=== PATIENT | male | born 1975 | race Caucasian/White ===

== ENCOUNTER 2019-11-04 10:07 | Inpatient (IN) | payer OTHER ==
[2019-11-04 11:56] VITALS: BMI 25.1
--- NOTE | 2019-11-04 12:15 | HP ---
<Matthew Drake - Last Filed: 11/04/19 13:25> COWS - Scale Resting Pulse: 1= [place] 81-100 Sweatin=Flushed/Facial Moisture Pupil Size: 1= Pupils >than Normal Bone or Joint Aches: 0= None Runny Nose/ Eye Tearin= None GI Upset > 30mins: 2= Nausea/Diarrhea Tremor Observation: 0= None Yawning Observation: 0= None Anxiety or Irritability: 1=Feels Anxious/Irritable Goose Flesh Skin: 0=Smooth Skin CIWA Score Nausea/Vomitin-Mild Nausea/No Vomiting Muscle Tremors: 1-None Visible, but [place] Anxiety: 2 Agitation: 1-Slight > Activity Paroxysmal Sweats: 1-Minimal Palms Moist Orientation: 0-Oriented Tacttile Disturbances: 2-Mild Itch/Numbness/Burn Auditory Disturbances: 1-Very Mild Visual Disturbances: 0-None Headache: 0-None Present CIWA-Ar Total Score: 9 - Admission Criteria OASAS Guidelines: Admission for Medically Managed Detox: Requires at least one of the followin. CIWA greater than 12 2. Seizures within the past 24 hours 3. Delirium tremens within the past 24 hours 4. Hallucinations within the past 24 hours 5. Acute intervention needed for co occurring medical disorder 6. Acute intervention needed for co occurring psychiatric disorder 7. Severe withdrawal that cannot be handled at a lower level of care (continued vomiting, continued diarrhea, abnormal vital signs) requiring intravenous medication and/or fluids 8. Patient presents the following: Seizures, delirium tremens or hallucinations in the past 12 hours Admission Criteria Met: Admission criteria met Admitting History and Physical - Admission Chief Complaint: detox History of Present Illness: Seeks detox for heroin, cocaine, alcohol, marijuana, Xanax. Heroin: been using 19 years, 20 bags daily, injects. Has withdrawn in the past. Feels he is beginning to withdraw now. Last use yesterday. Cocaine: been using 19 years, injects, 3 X $20's daily. Last use yesterday Alcohol: been using 16 years, states he drinks socially usually 8 beers and a pint of vodka daily, has withdrawn, never had a seizure, Last drink yesterday Marijuana: daily since 13 years old, $45 worth daily Xanax: 2 pills daily (or whenever he can get it) for about 10 years Tobacco: 1ppd since age 15 Admits to: anxious, tingling, tremors, auditory hallucinations, sweaty, nausea Denies: visual hallucination, runny nose Is not in a methadone program Buys methadone on the street PMH: asthma, hep B PSH: none Psych: Depression, Anxiety Meds: none All: none Soc: Was living in an apt with his significant other. He was kicked out yesterday. States now he is homeless A/P: Will admit for detox and reassess need for rehab once detox is complete. Counselled. Systolic murmur noted on physical exam. Pt advised he will need to see his doctor to follow up. Cautioned against IVDA History Source: Patient Limitations to Obtaining History: No Limitations - Past Medical History Pulmonary: Yes: Asthma Hepatobiliary: Yes: Hepatitis B Infectious Disease: No: HIV Psych: Yes: Anxiety, Depression - Past Surgical History Past Surgical History: Yes: None - Smoking History Smoking history: Current every day smoker Have you smoked in the past 12 months: Yes Aproximately how many cigarettes per day: 24 - Alcohol/Substance Use History of Substance Use: reports: Cocaine, Heroin, Marijuana, Prescription ( Xanax) - Social History Usual Living Arrangement: Yes: With Spouse (was just kicked out yesterday) 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, maintenance History of Recent Travel: No Admission [facility] Allergies/Adverse Reactions: Allergies Allergy/AdvReac Type Severity Reaction Status Date / Time No Known Allergies Allergy Verified 11/04/19 11:39 - Ebola screening Have you traveled outside of the country in the last 21 days: No Have you had contact with anyone from an Ebola affected area: No Do you have a fever: No Patient History - Patient Medical History Hx Asthma: No Hx Chronic Obstructive Pulmonary Disease (COPD): No Hx Cardiac Disorders: No Hx Hypertension: No Hx Seizures: No Hx Diabetes: No Hx Gastrointestinal Disorders: No Hx Genitourinary Disorders: No Hx Sexually Transmitted Disorders: No Hx Renal Disease (ESRD): No Hx Depression: No Hx Suicide Attempt: No Hx Schizophrenia: Yes - Patient Surgical History Past Surgical History: Yes Hx Neurologic Surgery: No Hx Cataract Extraction: No Hx Cardiac Surgery: No Hx Lung Surgery: No Hx Breast Surgery: No Hx Breast Biopsy: No Hx Abdominal Surgery: No Hx Appendectomy: No Hx Cholecystectomy: No Hx Genitourinary Surgery: No Hx Section: No Hx Orthopedic Surgery: No Other Surgical History: Tonsillectomy at age 9. Anesthesia Reaction: No - PPD History Previous Implant?: No - Reproductive History Patient : No - Smoking Cessation Smoking history: Current every day smoker Have you smoked in the past 12 months: Yes Aproximately how many cigarettes per day: 24 Cigars Per Day: 0 Hx Chewing Tobacco Use: No Initiated information on smoking cessation: Yes 'Breaking Loose' booklet given: 11/04/19 - Substances abused Alcohol Substance route: Oral Frequency: 3-6 times per week Amount used: 1.5 pints of voldka Age of first use: 20 Date of last use: 10/30/19 Cocaine Substance route: Injection Frequency: 3-6 times per week Amount used: 3 bags Age of first use: 20 Date of last use: 11/03/19 Heroin Substance route: Injection Frequency: Daily Amount used: 21 bags Age of first use: 20 Date of last use: 11/02/19 Marijuana/Hashish Substance route: Smoking Frequency: Daily Amount used: 4 blunts Age of first use: 15 Date of last use: 11/03/19 Admission Physical Exam [facility] - Vital Signs Vital Signs: Vital Signs - 24 hr 11/04/19 11:39 Temperature 98.1 F Pulse Rate 73 Respiratory 18 Rate Blood Pressure 118/62 - Physical General Appearance: Yes: Intoxicated, Other (somnolent) HEENTM: Yes: EOMI, Normocephalic, Pharynx Normal. No: KENZIE (3 mm pupils sluggish, equal b/l) Respiratory: Yes: Within Normal Limits Neck: Yes: Within Normal Limits (no bruits) Cardiology: Yes: Regular Rhythm, Regular Rate, Systolic Murmur (soft 2/6 systolic murmur at the apex) Abdominal: Yes: Within Normal Limits Extremities: No: Normal Inspection (injection sites b/l dorsum of hand, R AC injection site all with thrombosis/fibrosis of veins. Do not appear to be infected at this time.) Integumentary: Yes: Track Chavez Cleared for Admission [facility] - Detox or Rehab [facility] Level of Care: Medically Managed Screened but not Admitted - Documentation of Visit Screened but not Admitted: No Urine Drug Screen - Test Device Lot number: [id number] Expiration date: 03/06/21 - Control Is test valid?: Yes - Results Drug screen NEGATIVE: No Urine drug screen results: THC-Marijuana, CHRISTY-Cocaine, MOP-Opiates, MTD- Methadone, BZO-Benzodiazepines Inpatient Rehab Admission - Rehab Decision to Admit Inpatient rehab admission?: No <Kriss Pires - Last Filed: 11/04/19 14:50> CIWA Score Paroxysmal Sweats: 3 Auditory Disturbances: 1-Very Mild - Admission Criteria OASAS Guidelines: Admission for Medically Managed Detox: Requires at least one of the followin. CIWA greater than 12 2. Seizures within the past 24 hours 3. Delirium tremens within the past 24 hours 4. Hallucinations within the past 24 hours 5. Acute intervention needed for co occurring medical disorder 6. Acute intervention needed for co occurring psychiatric disorder 7. Severe withdrawal that cannot be handled at a lower level of care (continued vomiting, continued diarrhea, abnormal vital signs) requiring intravenous medication and/or fluids 8. Admission Physical Exam [facility] - Vital Signs Vital Signs: Vital Signs - 24 hr 11/04/19 11:39 Temperature 98.1 F Pulse Rate 73 Respiratory 18 Rate Blood Pressure 118/62
[2019-11-04] MEDS ORDERED: hydrOXYzine PAMOATE 25 MG CAPSULE (FP) PO PRN (13:32)
[2019-11-04] MEDS ORDERED: MENTHOL/PHENOL 1 EACH UD MM PRN (13:32)
[2019-11-04] MEDS ORDERED: BISMUTH SUBSALICYLATE 262 MG/15 ML BTL PO PRN (13:32)
[2019-11-04] MEDS ORDERED: MAGNESIUM HYDROX 2400MG/30ML ORAL SUSPENSION 30 ML CUP PO PRN (13:32)
[2019-11-04] MEDS ORDERED: MAGNESIUM CITRATE 300 ML BOTTLE PO PRN (13:32)
[2019-11-04] MEDS ORDERED: cloNIDine HCL 0.1 MG TABLET PO PRN (13:32)
[2019-11-04] MEDS ORDERED: IBUPROFEN 400 MG TABLET (FP) PO PRN (13:32)
[2019-11-04] MEDS ORDERED: MAG HYDROX/AL HYDROX/SIMETH 30 ML UNIT-DOSE CUP PO PRN (13:32)
[2019-11-04] MEDS ORDERED: METHOCARBAMOL 500 MG TABLET PO PRN (13:32)
[2019-11-04] MEDS ORDERED: ACETAMINOPHEN 325 MG TABLET (FP) PO PRN ×2 (13:32)
[2019-11-04] MEDS ORDERED: chlordiazePOXIDE HCL 25 MG CAPSULE PO PRN (13:32)
[2019-11-04] MEDS ORDERED: METHADONE HCL 10 MG TABLET (FOR DETOX USE ONLY) PO ONE (14:10)
[2019-11-04] MEDS: chlordiazePOXIDE HCL 25 MG CAPSULE PO SCH ×2 (17:45→22:19)
[2019-11-04 17:48] LABS: HEMATOCRIT 35.9 % (35.4-49); MCH 29.8 pg (25.7-33.7); MCHC 33.4 g/dl (32.0-35.9); MEAN CELL VOLUME 89.3 fl (80-96); MEAN PLT VOLUME 7.2 fl (7.5-11.1); PLATELET COUNT 247 K/MM3 (134-434); RBC 4.02 M/mm3 (4.00-5.60); RDW 13.6 % (11.9-15.9); WHITE BLOOD COUNT 7.7 K/mm3 (4.0-10.0)
[2019-11-04 17:59] LABS: ALBUMIN 2.8 g/dl (3.4-5.0); BILIRUBIN,TOTAL 0.4 mg/dL (0.2-1); BLOOD UREA NITROGEN 12.3 mg/dL (7-18); CALCIUM 8.2 mg/dL (8.5-10.1); CREATININE 0.9 mg/dL (0.55-1.3); POTASSIUM 3.6 mmol/L (3.5-5.1); TOT PROT 6.8 g/dl (6.4-8.2)
[2019-11-04] MEDS: THIAMINE HCL 100 MG TABLET (FP) PO SCH (22:18)
[2019-11-04] MEDS: MELATONIN 5 MG TABLETS PO PRN (22:19)
[2019-11-05] MEDS: chlordiazePOXIDE HCL 25 MG CAPSULE PO SCH ×4 (06:36→22:08)
[2019-11-05] MEDS ORDERED: METHADONE HCL 5 MG TABLET (FOR DETOX USE ONLY) ONE (08:59)
[2019-11-05] MEDS ORDERED: METHADONE HCL 10 MG TABLET (FOR DETOX USE ONLY) ONE (09:00)
[2019-11-05] MEDS ORDERED: METHADONE (DETOX) 20 MG, METHADONE (DETOX) 5 MG PO ONE (10:00)
[2019-11-05] MEDS: PRENATAL VITAMINS W/ FOLIC ACID TABLET (FP) PO SCH (10:05)
[2019-11-05] MEDS: NICOTINE 21 MG/24 HOURS TOPICAL PATCH TD SCH (10:08)
[2019-11-05] MEDS ORDERED: PNEUMOC 13-VAL CONJ-DIP CRM/PF 0.5 ML DISP.SYRIN IM ONE (12:00)
[2019-11-05] MEDS ORDERED: FLU VACCINE QUAD 60 MCG/0.5 ML (MDV 19-20) IM ONE (12:00)
[2019-11-05] MEDS ORDERED: PNEUMOCOCCAL 23 VACCINE 0.5 ML VIAL IM ONE (12:00)
--- NOTE | 2019-11-05 12:12 | PN ---
[facility] CIWA - CIWA Score Nausea/Vomitin-No Nausea/No Vomiting Muscle Tremors: 3 Anxiety: 3 Agitation: 3 Paroxysmal Sweats: 3 Orientation: 0-Oriented Tacttile Disturbances: 0-None Auditory Disturbances: 0-None Visual Disturbances: 0-None Headache: 0-None Present CIWA-Ar Total Score: 12 [facility] COWS - Scale Resting Pulse: 0= [place] 80 or Below Sweatin= Chills/Flushing Restless Observation: 1= Difficult to Sit Still Pupil Size: 0= Normal to Room Light Bone or Joint Aches: 2= Severe Diffuse Aches Runny Nose/ Eye Tearin= Runny Nose/Eyes GI Upset > 30mins: 1= Stomach Cramp Tremor Observation of Outstretched Hands: 2= Slight Tremor Visible Yawning Observation: 2= >3x During Session Anxiety or Irritability: 2=Irritable/Anxious Goose Flesh Skin: 0=Smooth Skin COWS Score: 13 S Progress Note (SOAP) Subjective: sweats shakes irritable interrupted sleep agitation poor appetite Objective: 11/05/19 12:12 Vital Signs Temperature 97.9 F 11/05/19 09:39 Pulse Rate 75 11/05/19 09:39 Respiratory Rate 18 11/05/19 09:39 Blood Pressure 113/73 11/05/19 09:39 O2 Sat by Pulse Oximetry (%) Laboratory Tests 11/04/19 11/04/19 11/04/19 13:30 13:30 13:30 WBC 7.7 RBC 4.02 Hgb 12.0 Hct 35.9 MCV 89.3 MCH 29.8 MCHC 33.4 RDW 13.6 Plt Count 247 MPV 7.2 L Sodium 140 Potassium 3.6 Chloride 105 Carbon Dioxide 29 Anion Gap 6 L BUN 12.3 Creatinine 0.9 Est GFR (CKD-EPI)AfAm 120.81 Est GFR (CKD-EPI)NonAf 104.24 Random Glucose 86 Calcium 8.2 L Total Bilirubin 0.4 AST 22 ALT 35 Alkaline Phosphatase 117 Total Protein 6.8 Albumin 2.8 L RPR Titer Nonreactive HIV 1&2 Antibody Screen HIV P24 Antigen 11/05/19 07:30 WBC RBC Hgb Hct MCV MCH MCHC RDW Plt Count MPV Sodium Potassium Chloride Carbon Dioxide Anion Gap BUN Creatinine Est GFR (CKD-EPI)AfAm Est GFR (CKD-EPI)NonAf Random Glucose Calcium Total Bilirubin AST ALT Alkaline Phosphatase Total Protein Albumin RPR Titer HIV 1&2 Antibody Screen Negative HIV P24 Antigen Negative aaox3 ambulating no acute distress Assessment: 11/05/19 12:12 withdrawals Plan: continue detox increase fluids ensure plus bid
[2019-11-05] MEDS: THIAMINE HCL 100 MG TABLET (FP) PO SCH (22:09)
[2019-11-06] MEDS: chlordiazePOXIDE HCL 25 MG CAPSULE PO SCH ×4 (05:46→22:18)
[2019-11-06] MEDS: PRENATAL VITAMINS W/ FOLIC ACID TABLET (FP) PO SCH (09:56)
[2019-11-06] MEDS: NICOTINE 21 MG/24 HOURS TOPICAL PATCH TD SCH (09:56)
[2019-11-06] MEDS ORDERED: METHADONE HCL 10 MG TABLET (FOR DETOX USE ONLY) PO ONE (10:00)
--- NOTE | 2019-11-06 10:12 | PN ---
[facility] CIWA - CIWA Score Nausea/Vomitin-No Nausea/No Vomiting Muscle Tremors: 3 Anxiety: 3 Agitation: 3 Paroxysmal Sweats: 3 Orientation: 0-Oriented Tacttile Disturbances: 0-None Auditory Disturbances: 0-None Visual Disturbances: 0-None Headache: 0-None Present CIWA-Ar Total Score: 12 BHS COWS - Scale Resting Pulse: 1= [place] 81-100 Sweatin=Flushed/Facial Moisture Restless Observation: 1= Difficult to Sit Still Pupil Size: 0= Normal to Room Light Bone or Joint Aches: 1= Mild Discomfort Runny Nose/ Eye Tearin= Nasal Congestion GI Upset > 30mins: 0= None Tremor Observation of Outstretched Hands: 1= Tremor [place], Not Seen Yawning Observation: 1= 1-2x During Session Anxiety or Irritability: 2=Irritable/Anxious Goose Flesh Skin: 0=Smooth Skin COWS Score: 10 S Progress Note (SOAP) Subjective: irritable agitation restless interrupted sleep sweats Objective: 11/06/19 12:33 Vital Signs Temperature 97.8 F 11/06/19 09:38 Pulse Rate 88 11/06/19 09:38 Respiratory Rate 18 11/06/19 09:38 Blood Pressure 133/72 11/06/19 09:38 O2 Sat by Pulse Oximetry (%) Laboratory Tests 11/04/19 11/04/19 11/04/19 13:30 13:30 13:30 WBC 7.7 RBC 4.02 Hgb 12.0 Hct 35.9 MCV 89.3 MCH 29.8 MCHC 33.4 RDW 13.6 Plt Count 247 MPV 7.2 L Sodium 140 Potassium 3.6 Chloride 105 Carbon Dioxide 29 Anion Gap 6 L BUN 12.3 Creatinine 0.9 Est GFR (CKD-EPI)AfAm 120.81 Est GFR (CKD-EPI)NonAf 104.24 Random Glucose 86 Calcium 8.2 L Total Bilirubin 0.4 AST 22 ALT 35 Alkaline Phosphatase 117 Total Protein 6.8 Albumin 2.8 L RPR Titer Nonreactive HIV 1&2 Antibody Screen HIV P24 Antigen 11/05/19 07:30 WBC RBC Hgb Hct MCV MCH MCHC RDW Plt Count MPV Sodium Potassium Chloride Carbon Dioxide Anion Gap BUN Creatinine Est GFR (CKD-EPI)AfAm Est GFR (CKD-EPI)NonAf Random Glucose Calcium Total Bilirubin AST ALT Alkaline Phosphatase Total Protein Albumin RPR Titer HIV 1&2 Antibody Screen Negative HIV P24 Antigen Negative aaox3 ambulating no acute distress Assessment: 11/06/19 12:33 withdrawals Plan: continue detox increase fluids chest x-ray ordered
[2019-11-06] MEDS: MELATONIN 5 MG TABLETS PO PRN (22:18)
[2019-11-06] MEDS: THIAMINE HCL 100 MG TABLET (FP) PO SCH (22:18)
[2019-11-07] MEDS ORDERED: chlordiazePOXIDE HCL 10 MG CAPSULE PO PRN
[2019-11-07] MEDS ORDERED: chlordiazePOXIDE HCL 10 MG CAPSULE PO SCH (05:00)
[2019-11-07 06:35] VITALS: BP 142/84; PULSE 71; TEMP 97
[2019-11-07] MEDS ORDERED: METHADONE (DETOX) 10 MG, METHADONE (DETOX) 5 MG PO ONE (10:00)
--- NOTE | 2019-11-07 12:23 | PN ---
S Progress Note Note: pt approached check writer that he has things to do and wants to leave now. Pt was advised about relapse, risk of seizures, OD, DT and or loss, pt chose to sign out AMA.
--- NOTE | 2019-11-07 12:24 | DS ---
[facility] Detox Discharge Summary Admission Date: 11/04/19 - History Present History: Alcohol Dependence, Cocaine Dependence, Opioid Dependence - Physical Exam Results Vital Signs: Vital Signs Temperature 97 F L 11/07/19 06:34 Pulse Rate 71 11/07/19 06:34 Respiratory Rate 18 11/07/19 06:34 Blood Pressure 142/84 11/07/19 06:34 O2 Sat by Pulse Oximetry (%) - Treatment Hospital Course: Rehab Referral Accepted - Medication Discharge Medications: Ambulatory Orders NK [No Known Home Medication] 11/04/19 - Diagnosis (1) Alcohol dependence with withdrawal, uncomplicated Current Visit: Yes Status: Chronic (2) Cocaine dependence Current Visit: Yes Status: Chronic Qualifiers: Substance use status: uncomplicated Qualified Code(s): F14.20 - Cocaine dependence, uncomplicated (3) Nicotine dependence Current Visit: Yes Status: Chronic Qualifiers: Nicotine product type: cigarettes Substance use status: uncomplicated Qualified Code(s): F17.210 - Nicotine dependence, cigarettes, uncomplicated (4) Opioid dependence with withdrawal Current Visit: Yes Status: Chronic - AMA Did Patient Leave Against Medical Advice: Yes
[2019-11-08] MEDS ORDERED: chlordiazePOXIDE HCL 10 MG CAPSULE PO SCH (05:00)
[2019-11-08] MEDS ORDERED: METHADONE HCL 10 MG TABLET (FOR DETOX USE ONLY) PO ONE (10:00)
[2019-11-09] MEDS ORDERED: chlordiazePOXIDE HCL 10 MG CAPSULE PO ONE (05:00)
[2019-11-09] MEDS ORDERED: METHADONE HCL 5 MG TABLET (FOR DETOX USE ONLY) PO ONE (06:00)
== END 2019-11-07 10:05 | disposition left against medical advice (07) | DRG 770 ==
LOC: YASAS 10:07 → Y6N 13:42
PROVIDERS: ADMIT Allergy & Immunology; ATTEND Allergy & Immunology
PROC: HZ2ZZZZ Detoxification Services for Substance Abuse Treatment (ICD-10-PCS; principal; 2019-11-04)
DX: F10.230 Alcohol dependence with withdrawal, uncomplicated (principal); F11.23 Opioid dependence with withdrawal; F13.20 Sedative, hypnotic or anxiolytic dependence, uncomplicated; F14.20 Cocaine dependence, uncomplicated; F12.20 Cannabis dependence, uncomplicated; F17.210 Nicotine dependence, cigarettes, uncomplicated; F32.9 Major depressive disorder, single episode, unspecified; F42.9 Obsessive-compulsive disorder, unspecified; B19.10 Unspecified viral hepatitis B without hepatic coma; J45.909 Unspecified asthma, uncomplicated; Z59.0 Homelessness
CPT/HCPCS: 36415; 80053; 85027; 86593; 87389; 90732; G0008; G0009; Q2036

== ENCOUNTER 2020-06-06 13:43 | Inpatient (IN) | payer OTHER ==
[2020-06-06] MEDS ORDERED: NICOTINE POLACRILEX 2 MG GUM BUC PRN (15:25)
[2020-06-06] MEDS ORDERED: ACETAMINOPHEN 325 MG TABLET (FP) PO PRN (15:25)
[2020-06-06] MEDS ORDERED: hydrOXYzine PAMOATE 25 MG CAPSULE (FP) PO PRN (15:25)
[2020-06-06] MEDS ORDERED: MAG HYDROX/AL HYDROX/SIMETH 30 ML UNIT-DOSE CUP PO PRN (15:25)
[2020-06-06] MEDS ORDERED: guaiFENesin 200 MG/10 ML 10 ML UNIT-DOSE CUPS PO PRN (15:25)
[2020-06-06] MEDS ORDERED: MAGNESIUM CITRATE 300 ML BOTTLE PO PRN (15:25)
[2020-06-06] MEDS ORDERED: IBUPROFEN 400 MG TABLET (FP) PO PRN (15:25)
[2020-06-06] MEDS ORDERED: LOPERAMIDE HCL 2 MG CAPSULE PO PRN (15:25)
[2020-06-06] MEDS ORDERED: MENTHOL/PHENOL 1 EACH UD MM PRN (15:25)
[2020-06-06] MEDS ORDERED: MAGNESIUM HYDROX 2400MG/30ML ORAL SUSPENSION 30 ML CUP PO PRN (15:25)
[2020-06-06] MEDS ORDERED: P-EPHED 60MG/TRIPROLIDI 2.5MG TABLET PO PRN (15:25)
--- NOTE | 2020-06-06 15:25 | HP ---
[facility] Rehab Assess/Revision - Admission History Admitted to Rehab from: [facility] Date of Admission to Rehab: 06/06/2020 - Vital signs Vital Signs: Vital Signs Period Temp Pulse Resp BP Sys/Plunkett Pulse Ox Last 24 Hr 98.1 F 99 18 107/74 97 - Findings Detox History & Physical reviewed: Yes Concur with findings: Yes Inpatient Rehab Admission - Rehab Decision to Admit Inpatient rehab admission?: Yes - Initial Determination Are CD services needed?: No Free of communicable disease: Yes Not in need of hospitalization: No - Rehab Admission Criteria Previous failed treatment: Yes Poor recovery environment: Yes Comorbidities: Yes Lacks judgement: Yes Patient is meeting Inpatient Rehab admission criteria:: Yes
[2020-06-06] MEDS ORDERED: ALBUTEROL SO4 HFA INHALER IH PRN (15:29)
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
[2020-06-06] MEDS: THIAMINE HCL 100 MG TABLET (FP) PO SCH (21:30)
[2020-06-06] MEDS: MELATONIN 5 MG TABLETS PO SCH (21:30)
[2020-06-06] MEDS: QUEtiapine FUMARATE 50 MG TABLET PO SCH (21:30)
[2020-06-07] MEDS: PRENATAL VITAMINS W/ FOLIC ACID TABLET (FP) PO SCH (10:50)
[2020-06-07] MEDS: MELATONIN 5 MG TABLETS PO SCH (21:12)
[2020-06-07] MEDS: THIAMINE HCL 100 MG TABLET (FP) PO SCH (21:12)
[2020-06-07] MEDS: QUEtiapine FUMARATE 50 MG TABLET PO SCH (21:13)
[2020-06-08] MEDS: PRENATAL VITAMINS W/ FOLIC ACID TABLET (FP) PO SCH (10:13)
[2020-06-08] MEDS: QUEtiapine FUMARATE 50 MG TABLET PO SCH (21:32)
[2020-06-08] MEDS: THIAMINE HCL 100 MG TABLET (FP) PO SCH (21:32)
[2020-06-08] MEDS: MELATONIN 5 MG TABLETS PO SCH (21:33)
[2020-06-09 07:00] VITALS: BP 104/82; PULSE 106; TEMP 97.5
[2020-06-09] MEDS: PRENATAL VITAMINS W/ FOLIC ACID TABLET (FP) PO SCH (09:50)
--- NOTE | 2020-06-09 10:39 | PN ---
S Progress Note Note: Patient c/o diarrhea. Nurse advised imodium, which the patient already has in his medication regimen. Will continue to monitor.
--- NOTE | 2020-06-09 11:32 | DS ---
[facility] Rehab Discharge Summary - [facility] Rehab Discharge Summary Admission Date: 06/06/20 Discharge Date: 06/09/20 - History Present History: Cocaine dependence, Opioid dependence Pertinent Past History: 45 years old male with long history of heroin dependence (since age19 years). His last admission was for the period 11/04/2019- 11/07/2019 and he left A for family emergency. He uses 15 bags of heroin intravenously daily. He has medical history of asthma and Hep. B and psych. history of bipolar disorder, PTSD, depression, schizophrenia, and anxiety. Patient denies suicidal ideation at this time. He is unemployed, lives with ex- and denies legal issues. He reports blackouts and overdose, last overdose was 2 weeks prior to admission. - Discharge Physical Exam Vital Signs: Vital Signs Temperature 97.5 F L 06/09/20 06:34 Pulse Rate 106 H 06/09/20 06:34 Respiratory Rate 20 06/09/20 06:34 Blood Pressure 104/82 06/09/20 06:34 O2 Sat by Pulse Oximetry (%) 96 06/09/20 06:34 Pertinent Admission Physical Exam Findings: Physical General Appearance: no apparent distress HEENTM: normocephalic, PERRLA Respiratory:No Respiratory Distress Neck: supple Abdominal: +Bowel Sounds, Soft, non-tender Musculoskeletal: full weight bearing, full ROMs Neurological: Alert, Integumentary: Track Chavez (both hands) - Treatment Discharge Condition: Discharge condition good (medically stable for discharge.), Outpatient referral accepted (patient will go to [facility]) Hospital Course: Patient attended groups, had 1:1 with his counselor and was seen by the psychiatric service. He had no acute or urgent medical problems while in rehab. He c/o diarrhea relieved with imodium and will be discharged with a prescription for the same. - Medication Discharge Medications: Ambulatory Orders Quetiapine Fumarate [Seroquel -] 200 mg PO HS 06/06/20 Loperamide HCl [Imodium -] 4 mg PO Q6H PRN #14 capsule 06/09/20 - Medication-Assisted Treatment (MAT) Medication-Assisted Treatment (MAT): No - Discharge Instructions Diet, activity, other medical instructions: Diet: as tolerated Activity: as tolerated Other medical instructions: Please follow up with aftercare referral. - Diagnosis (1) Cannabis dependence Current Visit: Yes Status: Chronic (2) Cocaine dependence Current Visit: Yes Status: Chronic Qualifiers: Substance use status: uncomplicated Qualified Code(s): F14.20 - Cocaine dependence, uncomplicated (3) Opiate dependence Current Visit: Yes Status: Chronic - Follow-up Referral Minutes to complete discharge: 15 - AMA Did Patient Leave Against Medical Advice: No
== END 2020-06-09 11:30 | disposition home or self-care (01) | DRG 773 ==
LOC: YASAS 13:43 → Y3W 13:44
PROVIDERS: ADMIT Allergy & Immunology; ATTEND Allergy & Immunology
PROC: HZ2ZZZZ Detoxification Services for Substance Abuse Treatment (ICD-10-PCS; principal; 2020-06-06)
DX: F11.20 Opioid dependence, uncomplicated (principal); F14.20 Cocaine dependence, uncomplicated; F12.20 Cannabis dependence, uncomplicated; F17.210 Nicotine dependence, cigarettes, uncomplicated; F20.9 Schizophrenia, unspecified; F31.9 Bipolar disorder, unspecified; F19.282 Other psychoactive substance dependence with psychoactive substance-induced sleep disorder; F39 Unspecified mood [affective] disorder; F41.9 Anxiety disorder, unspecified; F43.10 Post-traumatic stress disorder, unspecified; J45.909 Unspecified asthma, uncomplicated; B19.10 Unspecified viral hepatitis B without hepatic coma; B35.3 Tinea pedis
CPT/HCPCS: 36415; 87389

== ENCOUNTER 2023-11-09 17:34 | Inpatient (IN) | payer OTHER ==
[2023-11-09 17:54] VITALS: BMI 18.8
[2023-11-09] MEDS ORDERED: BENZOCAINE/MENTHOL (CHLORASEPTIC ) LOZENGE MM PRN (21:16)
[2023-11-09] MEDS ORDERED: NICOTINE POLACRILEX 2 MG LOZENGE BC PRN (21:16)
[2023-11-09] MEDS ORDERED: MAGNESIUM HYDROX 2400MG/30ML ORAL SUSPENSION 30 ML CUP PO PRN (21:16)
[2023-11-09] MEDS ORDERED: NALOXONE HCL (KLOXXADO) 8 MG SPRAY NS PRN (21:16)
[2023-11-09] MEDS ORDERED: DICYCLOMINE HCL 10 MG CAPSULE PO PRN (21:16)
[2023-11-09] MEDS ORDERED: BISMUTH SUBSALICYLATE 524 MG/30 ML PO PRN (21:16)
[2023-11-09] MEDS ORDERED: MAG HYDROX/AL HYDROX/SIMETH 30 ML UNIT-DOSE CUP PO PRN (21:16)
[2023-11-09] MEDS ORDERED: POLYETHYLENE GLYCOL (HEALTHYLAX) 3350 17 GM PACKET PO PRN (21:16)
[2023-11-09] MEDS ORDERED: NALOXONE HCL 0.4 MG/ML VIAL IM PRN (21:16)
[2023-11-09] MEDS: methaDONE HCL 10 MG TABLET (FOR DETOX USE ONLY) PO ONE (22:43)
[2023-11-09] MEDS: MELATONIN 5 MG TABLETS PO SCH (22:43)
[2023-11-09] MEDS ORDERED: methaDONE HCL 10 MG TABLET (FOR DETOX USE ONLY) ONE (22:45)
[2023-11-09] MEDS ORDERED: MELATONIN 5 MG TABLETS ONE (22:45)
[2023-11-09] MEDS: THIAMINE HCL 100 MG TABLET (FP) PO SCH (23:38)
[2023-11-09] MEDS: cloNIDine HCL 0.1 MG TABLET PO PRN (23:42)
[2023-11-09] MEDS: IBUPROFEN 400 MG TABLET (FP) PO PRN (23:43)
[2023-11-10] MEDS: NICOTINE 21 MG/24 HOURS TOPICAL PATCH TD SCH (09:45)
[2023-11-10] MEDS: PRENATAL VITAMINS W/ FOLIC ACID TABLET (FP) PO SCH (09:45)
[2023-11-10] MEDS: ALBUTEROL SO4 HFA INHALER IH PRN (11:20)
[2023-11-10] MEDS: FLU VACCINE (FLULAVAL) PF 60 MCG/0.5 ML SYRINGE 2023-2024 IM ONE (11:21)
[2023-11-10] MEDS: LOPERAMIDE HCL 2 MG CAPSULE PO PRN (12:26)
[2023-11-10 14:34] LABS: CHLORIDE 102 mmol/L (98-107); HEMATOCRIT 36.5 % (35.4-49); HEMOGLOBIN 12.1 GM/dL (11.7-16.9); MCH 29.1 pg (25.7-33.7); MCHC 33.2 g/dl (32.0-35.9); MEAN CELL VOLUME 87.7 fl (80-96); MEAN PLT VOLUME 7.5 fl (7.5-11.1); PLATELET COUNT 416 10^3/uL (134-434); POTASSIUM 3.7 mmol/L (3.5-5.1); RBC 4.16 M/mm3 (4.00-5.60); RDW 13.6 % (11.9-15.9); SODIUM 138 mmol/L (136-145); WHITE BLOOD COUNT 13.9 K/mm3 (4.0-10.0)
[2023-11-10 14:59] LABS: CALCIUM 8.1 mg/dL (8.5-10.1)
[2023-11-10 15:00] LABS: ALBUMIN 2.1 g/dl (3.4-5.0); ANION GAP 8 mmol/L (4-13); BLOOD UREA NITROGEN 14.4 mg/dL (7-18); CO2 28 mmol/L (21-32); GLUCOSE,RANDOM 117 mg/dL (74-106)
[2023-11-10 15:03] LABS: CREATININE 0.8 mg/dL (0.55-1.3); SGOT/AST 20 U/L (15-37); SGPT/ALT 23 U/L (13-61)
[2023-11-10 15:05] LABS: ALK PHOS 166 U/L (45-117); BILIRUBIN,TOTAL 0.2 mg/dL (0.2-1); TOT PROT 7.8 g/dl (6.4-8.2)
[2023-11-10 15:32] LABS: HIV INTERPRETATION NEGATIVE (NEGATIVE)
[2023-11-10] MEDS: clonazePAM 0.5 MG ODT TABLETS SL PRN (17:25)
[2023-11-10] MEDS: BENZONATATE 200 MG CAPSULE PO PRN (20:37)
[2023-11-10] MEDS: QUEtiapine FUMARATE 100 MG TABLET (FP) PO SCH (21:47)
[2023-11-11] MEDS: IBUPROFEN 600 MG TABLET (FP) PO PRN (07:30)
[2023-11-11] MEDS: methaDONE HCL 10 MG TABLET (FOR DETOX USE ONLY) PO ONE (10:19)
[2023-11-11] MEDS: amLODIPine BESYLATE 5 MG TABLET (FP) PO SCH (14:51)
[2023-11-11] MEDS: VANCOMYCIN 250 MG/5 ML ORAL SOLUTION PO SCH (17:34)
[2023-11-11] MEDS: guaiFENesin 600 MG TABLET.ER (FP) PO PRN (18:12)
[2023-11-12] MEDS: CEPHALEXIN MONOHYDRATE 500 MG CAPSULE (UD) PO SCH (13:44)
[2023-11-12] MEDS: ACETAMINOPHEN 325 MG TABLET (FP) PO PRN (22:24)
[2023-11-13] MEDS: methaDONE HCL 10 MG TABLET (FOR DETOX USE ONLY) PO ONE (10:08)
[2023-11-13] MEDS: MUPIROCIN 2% TOPICAL OINTMENT 22 GM TUBE TP SCH (22:00)
[2023-11-14 09:55] VITALS: BP 113/73; PULSE 122; RESP 20; TEMP 99.1
== END 2023-11-14 10:53 | disposition home or self-care (01) | DRG 773 ==
LOC: YASAS 17:34 → Y6N 22:26
PROVIDERS: ADMIT Allergy & Immunology; ATTEND Allergy & Immunology
PROC: HZ2ZZZZ Detoxification Services for Substance Abuse Treatment (ICD-10-PCS; principal; 2023-11-09)
DX: F11.23 Opioid dependence with withdrawal (principal); F10.10 Alcohol abuse, uncomplicated; F14.20 Cocaine dependence, uncomplicated; F12.20 Cannabis dependence, uncomplicated; F17.210 Nicotine dependence, cigarettes, uncomplicated; F19.282 Other psychoactive substance dependence with psychoactive substance-induced sleep disorder; F19.24 Other psychoactive substance dependence with psychoactive substance-induced mood disorder; L03.115 Cellulitis of right lower limb; I10 Essential (primary) hypertension; B18.1 Chronic viral hepatitis B without delta-agent; J45.20 Mild intermittent asthma, uncomplicated; Z86.59 Personal history of other mental and behavioral disorders; Z99.89 Dependence on other enabling machines and devices; Z56.0 Unemployment, unspecified; Z59.00 Homelessness unspecified
CPT/HCPCS: 36415; 80053; 80307; 85027; 86780; 87070; 87205; 87389; 87635; 90686; 93005; 93010; G0008